=== PATIENT | male | born 1960 | race Caucasian/White ===

== ENCOUNTER 2018-10-28 12:07 | Emergency (ER) | payer MEDICARE, SELFPAY ==
[2018-10-28 12:08] VITALS: BP 135/87; PULSE 85; RESP 16; TEMP 36.8; O2SAT 97; BMI 39.5
--- NOTE | 2018-10-28 12:26 | ED.VISSUMM ---
- ER Visit Summary Date of Service: 10/28/18 Chief Complaint: [] Left shoulder pain for a week History of Present Illness: The patient is a 58 M [] hypertension diabetes for unspecified reasons she had a pain to the left shoulder its very focal into the fingertip region of the left AC joint, he did not injure his body anyway he has had no numbness weakness paresthesias, he does have arthritis, lumbar back disc disorder, and indicates that years ago he suffered a left shoulder dislocation indicates he really was not seen by physician for that he treated himself. No fever no cough no chest pain Physical Examination: [] Vital signs within normal range General, no distress resting comfortably HEENT is generally unremarkable The neck is supple no adenopathy Cardiovascular, regular rate and rhythm Lungs, clear bilateral Abdomen, soft nontender Extremities, no clubbing cyanosis or edema, he has a focal fingertip pain to the left AC joint shoulder region anteriorly, he has decreased range of motion to forward elevation there is no warmth crepitance subcu air or skin changes, the humerus elbow forearm wrist hand are unremarkable neurovascular function normal and the rest of the exam is unremarkable Neurologic, awake alert answering questions appropriately moving all 4 extremities Test Results: [] Emergency Department Course and Treatment: [] Given his complaints x-rays were obtained one [place] tablet for pain management X-rays are unremarkable nothing acute explained the concept of occult processes for with a sling Naprosyn for pain ice elevation he is referred to Dr. sánchez on-call for orthopedics Treatment Plan: [] Disposition: [] Home stable Impression: [] Shoulder injury This note was generated with [employer] dictation software. It may contain incorrect words, spelling, and punctuation that were not noted in review of the chart prior to signing ED Disposition - Plan for ED Patient: Instructions: ED Sprain Shoulder Prescriptions: Naproxen [Naprosyn] 500 mg PO BID PRN #20 tab Referrals: Anmol Harris DO [STAFF PHYSICIAN] -
--- NOTE | 2018-10-28 12:29 | ED.DCSUM_ITS ---
- ER Visit Summary Date of Service: 10/28/18 Chief Complaint: [] Left shoulder pain for a week History of Present Illness: The patient is a 58 M [] hypertension diabetes for unspecified reasons she had a pain to the left shoulder its very focal into the fingertip region of the left AC joint, he did not injure his body anyway he has had no numbness weakness paresthesias, he does have arthritis, lumbar back disc disorder, and indicates that years ago he suffered a left shoulder dislocation indicates he really was not seen by physician for that he treated himself. No fever no cough no chest pain Physical Examination: [] Vital signs within normal range General, no distress resting comfortably HEENT is generally unremarkable The neck is supple no adenopathy Cardiovascular, regular rate and rhythm Lungs, clear bilateral Abdomen, soft nontender Extremities, no clubbing cyanosis or edema, he has a focal fingertip pain to the left AC joint shoulder region anteriorly, he has decreased range of motion to forward elevation there is no warmth crepitance subcu air or skin changes, the humerus elbow forearm wrist hand are unremarkable neurovascular function normal and the rest of the exam is unremarkable Neurologic, awake alert answering questions appropriately moving all 4 extr emities Test Results: [] Emergency Department Course and Treatment: [] Given his complaints x-rays were obtained one [place] tablet for pain management X-rays are unremarkable nothing acute explained the concept of occult processes for with a sling Naprosyn for pain ice elevation he is referred to Dr. sánchez on-call for orthopedics Treatment Plan: [] Disposition: [] Home stable Impression: [] Shoulder injury This note was generated with [employer] dictation software. It may contain incorrect words, spelling, and punctuation that were not noted in review of the chart prior to signing ED Disposition - Plan for ED Patient: Instructions: ED Sprain Shoulder Prescriptions: Naproxen [Naprosyn] 500 mg PO BID PRN #20 tab Referrals: Anmol Harris DO [STAFF PHYSICIAN] -
[2018-10-28] MEDS: HYDROcodone Bitartrate/Apap 5/325 Tablet PO (12:34)
--- NOTE | 2018-10-28 12:45 | RAD_ITS ---
STUDY: X-RAY - LEFT SHOULDER REASON FOR EXAM: Male, 58 years old. Left shoulder pain TECHNIQUE: 4 view(s) of the shoulder. COMPARISON: None. FINDINGS: Normal glenohumeral articulation. There is degenerative arthrosis of the acromioclavicular joint without inferior osseous spur formation. Normal acromion. Normal humeral head and visualized proximal humerus. There is periarticular soft tissue calcification consistent with a calcific tendinitis. Normal visualized pulmonary apex. RAD/Shoulder min 2 Views IMPRESSION: No fracture or malalignment. Calcific tendinitis. Acromioclavicular joint arthrosis. Electronically Signed: Fausto Mccarty MD at 13:21 EST , Service support ,
[2018-10-28 13:40] VITALS: RESP 16
== END 2018-10-28 13:40 | disposition home or self-care (01) ==
PROVIDERS: Emergency Provider Emergency Medicine; Family Provider Internal Medicine; PCP Internal Medicine
DX: S49.92XA Unspecified injury of left shoulder and upper arm, initial encounter (principal); X58.XXXA Exposure to other specified factors, initial encounter; Y93.89 Activity, other specified; Y92.9 Unspecified place or not applicable; Y99.9 Unspecified external cause status; E11.9 Type 2 diabetes mellitus without complications; I10 Essential (primary) hypertension
CPT/HCPCS: 73030; 99283